=== PATIENT | male | born 1995 | race Caucasian/White ===

== ENCOUNTER 2021-09-05 04:27 | Emergency (ER) | payer SELFPAY ==
[~2021-09-05] VITALS: Ht 177.8 cm; Wt 123.0 kg
[2021-09-05 04:56] LABS: BASO # 0.1 x10^3/uL (0.0-0.2); BASO % 1 % (0-3); EOS # 0.2 x10^3/uL (0.0-0.7); EOS % 3 % (0-3); HEMATOCRIT 45.7 % (39.0-53.0); HEMOGLOBIN 15.4 g/dL (13.0-17.5); LYMPH # 2.1 x10^3/uL (1.0-4.8); LYMPH % 22 % (24-48); MEAN CORPUSCULAR HEMOGLOBIN 29 pg (25-35); MEAN CORPUSCULAR HGB CONC 34 g/dL (31-37); MEAN CORPUSCULAR VOLUME 87 fL (79-100); MONO # 0.8 x10^3/uL (0.0-1.1); MONO % 9 % (0-9); NEUT # 6.4 x10^3/uL (1.8-7.7); NEUT % 66 % (31-73); PLATELET COUNT 275 x10^3/uL (140-400); RED BLOOD COUNT 5.26 x10^6/uL (4.30-5.70); RED CELL DISTRIBUTION WIDTH 13.1 % (11.5-14.5); WHITE BLOOD COUNT 9.6 x10^3/uL (4.0-11.0)
--- NOTE | 2021-09-05 05:06 | RAD ---
XR CHEST 1V Clinical History: Reason: chest pain / Spl. Instructions: / History: Technique: AP view of the chest was obtained at 09/05/2021 4:56 AM. Comparison: None. Findings: The cardiomediastinal silhouette is normal. The pulmonary vasculature is normal. The lungs and pleura l margins are clear. Impression: No evidence of an acute cardiopulmonary process. Electronically signed by: Jacoby Toussaint III, MD (09/05/2021 5:03 AM) [facility]
[2021-09-05 05:07] LABS: CALCIUM 8.5 mg/dL (8.5-10.1); CREATININE 1.2 mg/dL (0.7-1.3); GFR 74.4; POTASSIUM 3.7 mmol/L (3.5-5.1)
[2021-09-05 05:19] VITALS: BP 167/81
--- NOTE | 2021-09-05 05:19 | PHYS DOC ---
Past Medical History Additional Past Medical Histor: COVID 14 SEP 2021 Past Surgical History: No Surgical History Smoking Status: Never Smoker Alcohol Use: None General Adult EDM: Chief Complaint: CHEST PAIN HPI: HPI: Patient is a 26 year old male with history of untreated HTN who presents with chest pain. Pain started approximately 1.5 hours prior to arrival. Substernal. Sharp. Radiates to the left shoulder. Not pleuritic. Initially felt short of breath, but this spontaneously improved. He thinks he may have had Covid at the end of July. On 08/16 began having symptoms of myalgias, chills, nausea/vomiting, diarrhea. His girlfriend tested positive on 08/18 for Covid. He did not get tested until ~08/30 which he states was negative at that time. He had recovered to his usual state of health except for some lingering headaches. He states that he has anxiety and GERD and that this may be related to either of those, but he became so anxious that he needed to get checked out. No hemoptysis, cancer hx, lower extremity edema, smoking, recent surgery or immobilization. Has had untreated HTN for years, no DM, HLD to his knowledge. Review of Systems: Review of Systems: Constitutional: Denies fever or chills. [] Eyes: Denies change in visual acuity. [] HENT: Denies nasal congestion or sore throat. [] Respiratory: Denies cough or shortness of breath. [] Cardiovascular: Reports chest pain. GI: Denies abdominal pain, nausea, vomiting, bloody stools or diarrhea. [] : Denies dysuria. [] Musculoskeletal: Denies back pain or joint pain. [] Integument: Denies rash. [] Neurologic: Reports occasional headaches (none now). Denies focal weakness or sensory changes. [] Psychiatric: Denies depression or anxiety. [] Heart Score: C/O Chest Pain: Yes HEART Score for Chest Pain: HEART Score for Chest Pain Response (Comments) Value History Slighlty/Non-Suspicious 0 ECG Normal 0 Age < 45 0 Risk Factors 1 or 2 Risk Factors 1 Troponin < Normal Limit 0 Total 1 Risk Factors: Risk Factors: HTN, Obesity Risk Scores: Score 0 - 3: 2.5% MACE over next 6 weeks - Discharge Home Allergies: Allergies: Allergies Coded Allergies Type Severity Reaction Last Updated Verified No Known Drug Allergies 2/4/22 No Physical Exam: PE: Constitutional: Slightly anxious appearing, no distress, non-toxic HENT: Normocephalic, atraumatic [] Neck: Normal range of motion, no tenderness, supple, no stridor. [] Cardiovascular:tachy, regular, no murmur [] Lungs & Thorax: Bilateral breath sounds clear to auscultation [] Abdomen: Bowel sounds normal, soft, no tenderness, no masses, no pulsatile masses. [] Extremities: No tenderness, no cyanosis, no clubbing, ROM intact, no edema. [] Neurologic: Alert and oriented X 3, normal motor function, normal sensory function, no focal deficits noted. [] Psychologic: Anxious stated mood, congruent affect. Current Patient Data: Labs: Laboratory Tests Test 09/05/21 04:38 White Blood Count 9.6 x10^3/uL (4.0-11.0) Red Blood Count 5.26 x10^6/uL (4.30-5.70) Hemoglobin 15.4 g/dL (13.0-17.5) Hematocrit 45.7 % (39.0-53.0) Mean Corpuscular Volume 87 fL (79-100) Mean Corpuscular Hemoglobin 29 pg (25-35) Mean Corpuscular Hemoglobin Concent 34 g/dL (31-37) Red Cell Distribution Width 13.1 % (11.5-14.5) Platelet Count 275 x10^3/uL (140-400) Neutrophils (%) (Auto) 66 % (31-73) Lymphocytes (%) (Auto) 22 % (24-48) L Monocytes (%) (Auto) 9 % (0-9) Eosinophils (%) (Auto) 3 % (0-3) Basophils (%) (Auto) 1 % (0-3) Neutrophils # (Auto) 6.4 x10^3/uL (1.8-7.7) Lymphocytes # (Auto) 2.1 x10^3/uL (1.0-4.8) Monocytes # (Auto) 0.8 x10^3/uL (0.0-1.1) Eosinophils # (Auto) 0.2 x10^3/uL (0.0-0.7) Basophils # (Auto) 0.1 x10^3/uL (0.0-0.2) Laboratory Tests 09/05/21 04:38 Vital Signs: Vital Signs Date Time Temp Pulse Resp B/P (MAP) Pulse Ox O2 Delivery O2 Flow Rate FiO2 09/05/21 05:00 99 20 177/86 (116) 98 Room Air 09/05/21 04:35 98.6 98.6 EKG: EKG: Sinus rhythm. Rate 103. Normal axis. Normal NV, QRS, QTc intervals. No ST elevation or depression. No pathologic Q waves. [] Radiology/Procedures: Radiology/Procedures: [] Impression: [facility] [address] [place] [address] IMAGING REPORT Signed PATIENT: BRAD QUINN ACCOUNT: [id number] : 1995 LOCATION: ER AGE: 26 SEX: M EXAM STATUS: REG ER ORD. PHYSICIAN: MARY ELLEN PLATA MD REASON: chest pain PROCEDURE: CHEST AP ONLY XR CHEST 1V Clinical History: Reason: chest pain / Spl. Instructions: / History: Technique: AP view of the chest was obtained at 09/05/2021 4:56 AM. Comparison: None. Findings: The cardiomediastinal silhouette is normal. The pulmonary vasculature is normal. The lungs and pleural margins are clear. Impression: No evidence of an acute cardiopulmonary process. Electronically signed by: Jacy Toussaint III, MD (09/05/2021 5:03 AM) [facility] DICTATED and SIGNED BY: JACY TOUSSAINT III, MD DATE: 09/05/21 [id number] 0 Course & Med Decision Making: Course & Med Decision Making Pertinent Labs and Imaging studies reviewed. (See chart for details) Patient is 26-year-old male with history of untreated hypertension, and potentially recent Covid infection who presents with chest pain. On arrival is afebrile, tachycardic to low 100s, hypertensive, and satting well on room air. No acute distress on examination. Lungs clear. Chest x-ray normal. Not pneumonia or spontaneous ptx. EKG with sinus tachycardia, rate 103, otherwise normal. No ischemic changes. HEART score =1 for RF (obesity, HTN). Trop negative. At his age is exceedingly low risk for ACS. Considered PE given tachycardia and sharp CP, d-dimer negative. No further work up for PE in the ED. Patient HR now 90s. BP 167/81. Given stated hx of chronic HTN will give Rx for chlorthalidone and provide a list of primary care doctors to follow up with. Return precautions discussed. Telly Disclaimer: Telly Disclaimer: This electronic medical record was generated, in whole or in part, using a voice recognition dictation system. Departure Departure Impression: Primary Impression: Chest pain Disposition: HOME / SELF CARE / HOMELESS Condition: STABLE Referrals: NO PCP (PCP) Additional Instructions: Your work-up today was very reassuring against dangerous causes of chest pain. There is no sign of a heart attack. There is no sign of a blood clot in your lungs. There is no sign of pneumonia or other lung problems on your chest x- ray. Your blood pressure was significantly high. I have sent a prescription for a blood pressure medication called chlorthalidone to your pharmacy. Please pick this up and take it as prescribed. Please follow-up with a primary care doctor. Since you do not have a PCP, please call the number for the [facility] at [phone]. If you develop severe worsening of chest pain, worsening shortness of breath, or other new/concerning symptoms please return to the emergency department for reevaluation. Scripts Chlorthalidone (CHLORTHALIDONE ) 25 Mg Tablet 25 MG PO DAILY for DIURETIC for 30 Days, #30 TAB 0 Refills Prov: MARY ELLEN PLATA MD 09/05/21 MARY ELLEN PLATA MD Sep 05, 2021 05:19
[2021-09-05] MEDS ORDERED: CHLO25TA10 PO (05:30)
--- NOTE | 2021-09-05 07:26 | EKG ---
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
== END 2021-09-05 05:40 | disposition home or self-care (01) ==
LOC: ER 04:27
DX: R07.89 Other chest pain (principal); R06.02 Shortness of breath; I10 Essential (primary) hypertension
CPT/HCPCS: 36415; 71045; 80048; 84484; 85025; 85379; 93005; 99285-25

== ENCOUNTER 2021-09-27 14:12 | Emergency (ER) | payer SELFPAY ==
[~2021-09-27 14:12] MED LIST: CHLO25TA10 PO
== END 2021-09-27 15:06 | disposition left against medical advice (07) ==
LOC: ER 14:12
DX: J02.9 Acute pharyngitis, unspecified (principal); M54.2 Cervicalgia; Z53.21 Procedure and treatment not carried out due to patient leaving prior to being seen by health care provider

== ENCOUNTER 2021-10-17 22:02 | Emergency (ER) | payer SELFPAY ==
[~2021-10-17] VITALS: Ht 177.8 cm; Wt 113.0 kg
[2021-10-17 22:46] VITALS: BP 191/85
--- NOTE | 2021-10-17 22:55 | PHYS DOC ---
Past Medical History Additional Past Medical Histor: COVID 14 SEP 2021 Past Surgical History: No Surgical History Smoking Status: Never Smoker Alcohol Use: None General Adult EDM: Chief Complaint: NAUSEA/VOMITING/DIARRHEA HPI: HPI: Patient is a 26 year old male who presents with complaint of intractable nausea and vomiting. The patient states that he has been having difficulty with nausea and vomiting for several months. He states that in that time he has lost close to 40 pounds due to difficulty with oral intake. He states that he saw his primary care provider 2 days ago and subsequently was referred to the emergency department for further evaluation. He states that while at the emergency department at [facility] in [place], [place], he underwent blood work and CT imaging. He was diagnosed with GERD and hiatal hernia. The patient states however that despite ongoing treatment at home, he has not been able to tolerate oral intake and has had multiple episodes of nausea and vomiting. The patient states he feels very fatigued, nauseous, and states that he is concerned that he is very dehydrated. Despite trying to maintain oral hydration, he states that he immediately vomits anything that he tries to eat or drink. Patient thus came to the emergency department for further evaluation. The patient states that he is supposed to see a telemarketing manager next month. He is currently taking oral omeprazole and tried increasing his dose from 20 mg daily to 40 mg today, however he has not been able to tolerate any oral medication because of his vomiting. Review of Systems: Review of Systems: Constitutional: Fatigue, denies fever or chills. [] Eyes: Denies change in visual acuity. [] HENT: Denies nasal congestion or sore throat. [] Respiratory: Denies cough or shortness of breath. [] Cardiovascular: Denies chest pain or edema. [] GI: Nausea, vomiting, denies abdominal pain, bloody stools or diarrhea. [] : Denies dysuria. [] Musculoskeletal: Denies back pain or joint pain. [] Integument: Denies rash. [] Neurologic: Denies headache, focal weakness or sensory changes. [] Endocrine: Denies polyuria or polydipsia. [] Heart Score: C/O Chest Pain: No Risk Factors: Risk Factors: DM, Current or recent (<one month) smoker, HTN, HLP, family history of CAD, obesity. Risk Scores: Score 0 - 3: 2.5% MACE over next 6 weeks - Discharge Home Score 4 - 6: 20.3% MACE over next 6 weeks - Admit for Clinical Observation Score 7 - 10: 72.7% MACE over next 6 weeks - Early Invasive Strategies Allergies: Allergies: Allergies Coded Allergies Type Severity Reaction Last Updated Verified No Known Drug Allergies 08/30/21 No Physical Exam: PE: Constitutional: Alert, afebrile, ill-appearing. [] HENT: Normocephalic, atraumatic, bilateral external ears normal, oropharynx dry, no oral exudates, nose normal. [] Eyes: PERRLA, EOMI, conjunctiva normal, no discharge. [] Neck: Normal range of motion, no tenderness, supple, no stridor. [] Cardiovascular:Heart rate regular rhythm, no murmur [] Lungs & Thorax: Bilateral breath sounds clear to auscultation [] Abdomen: Bowel sounds normal, soft, no tenderness, no masses, no pulsatile masses. [] Skin: Warm, dry, no erythema, no rash. [] Back: No tenderness, no CVA tenderness. [] Extremities: No tenderness, no cyanosis, no clubbing, ROM intact, no edema. [] Neurologic: Alert and oriented X 3, normal motor function, normal sensory function, no focal deficits noted. [] Current Patient Data: Labs: Laboratory Tests Test 10/17/21 22:53 White Blood Count 5.9 x10^3/uL Red Blood Count 5.18 x10^6/uL Hemoglobin 15.0 g/dL Hematocrit 44.6 % Mean Corpuscular Volume 86 fL Mean Corpuscular Hemoglobin 29 pg Mean Corpuscular Hemoglobin Concent 34 g/dL Red Cell Distribution Width 13.4 % Platelet Count 149 x10^3/uL Neutrophils (%) (Auto) 60 % Lymphocytes (%) (Auto) 27 % Monocytes (%) (Auto) 10 % Eosinophils (%) (Auto) 2 % Basophils (%) (Auto) 1 % Neutrophils # (Auto) 3.5 x10^3/uL Lymphocytes # (Auto) 1.6 x10^3/uL Monocytes # (Auto) 0.6 x10^3/uL Eosinophils # (Auto) 0.1 x10^3/uL Basophils # (Auto) 0.1 x10^3/uL Sodium Level 142 mmol/L Potassium Level 3.7 mmol/L Chloride Level 106 mmol/L Carbon Dioxide Level 21 mmol/L Anion Gap 15 Blood Urea Nitrogen 8 mg/dL Creatinine 1.0 mg/dL Estimated GFR (Cockcroft-Gault) 91.8 BUN/Creatinine Ratio 8 Glucose Level 97 mg/dL Calcium Level 9.0 mg/dL Total Bilirubin 1.1 mg/dL Aspartate Amino Transf (AST/SGOT) 49 U/L Alanine Aminotransferase (ALT/SGPT) 76 U/L Alkaline Phosphatase 62 U/L Total Protein 7.4 g/dL Albumin 3.9 g/dL Albumin/Globulin Ratio 1.1 Lipase 356 U/L Current Medications Medications (Trade) Dose Ordered Sig/Darleen Route PRN Reason Start Time Stop Time Status Last Admin Dose Admin Sodium Chloride 1,000 ml @ 1,000 mls/hr Q1H IV 10/17/21 23:00 10/17/21 23:59 10/17/21 22:54 Prochlorperazine Edisylate (Compazine) 10 mg 1X ONCE IVP 10/17/21 23:00 10/17/21 23:01 DC 10/17/21 23:00 Famotidine (Pepcid Vial) 20 mg 1X ONCE IVP 10/17/21 23:00 10/17/21 23:01 DC 10/17/21 23:00 Diphenhydramine HCl (Benadryl) 12.5 mg 1X ONCE IVP 10/17/21 23:00 10/17/21 23:01 DC 10/17/21 23:00 Multi-Ingredient Mouthwash/Gargle (Gi Cocktail) 20 ml 1X ONCE SWSW 10/17/21 23:45 10/17/21 23:39 DC Al Hydroxide/Mg Hydroxide (Mylanta Plus Xs) 30 ml 1X ONCE PO 10/17/21 23:45 10/17/21 23:46 DC Vital Signs: Vital Signs Date Time Temp Pulse Resp B/P (MAP) Pulse Ox O2 Delivery O2 Flow Rate FiO2 10/17/21 22:19 98.0 83 18 157/94 (115) 97 Room Air 98.0 EKG: EKG: Not performed[] Radiology/Procedures: Radiology/Procedures: [facility] [address] [place] [address] IMAGING REPORT Signed PATIENT: BRAD QUINN ACCOUNT: [id number] : 1995 LOCATION: ER AGE: 26 SEX: M EXAM STATUS: REG ER ORD. PHYSICIAN: VIPUL LAL MD REASON: intractable nausea and vomiting PROCEDURE: ACUTE ABDOMEN SERIES XR ABDOMEN COMP ACUTE History: Intractable nausea and vomiting Comparison: None. Technique: Frontal chest with upright and supine radiographs of the abdomen and pelvis. Findings: Chest: The lungs are mildly hypoinflated. No focal airspace consolidation, pleural effusion or pneumothorax. Bowel gas pattern: Nonobstructive bowel gas pattern. No abnormally dilated bowel loops or differential air-fluid levels. Normal colonic gas without significant colonic stool burden. Free air: None. Abnormal calcifications: None. Bones: No acute findings. Other: None. Impression: 1. No acute findings in the abdomen and pelvis. 2. Clear lungs. Electronically signed by: Oscar Sharif MD (10/17/2021 11:44 PM) [facility] DICTATED and SIGNED BY: OSCAR SHARIF MD DATE: 10/17/212341 [] Course & Med Decision Making: Course & Med Decision Making Pertinent Labs and Imaging studies reviewed. (See chart for details) Patient was started on IV fluids, Pepcid, Compazine, and Benadryl. Patient's blood work was reviewed. Patient had noted mild nonspecific elevation of bilirubin, AST, and ALT. After administration of treatment the patient states that his symptoms have improved. Acute abdominal series shows no acute abnormalities. I recommended proceeding with oral treatment with Maalox to as sess PO status. The patient voiced apprehension of this as he was concerned about the possibility of included lidocaine. I assured the patient that we would treat with Maalox only and that this would be important to assess his PO status before making a decision on disposition. Shortly after this conversation, the patient stated he did not want any further treatments in the emergency department and wanted to leave. Patient was made aware of potential risk of leaving before full evaluation could be performed in the emergency department including worsening condition, illness, and possible . Patient was of sound mind and able to make his own medical decisions. The patient has decided to leave the emergency department AGAINST MEDICAL ADVICE. Advised to follow-up closely with primary care provider in the next 1 to 2 days for reevaluation and to return to the emergency department for any worsening symptoms. [] Dragon Disclaimer: Dragon Disclaimer: This electronic medical record was generated, in whole or in part, using a voice recognition dictation system. Departure Departure Impression: Primary Impression: Nausea and vomiting Qualified Codes: R11.2 - Nausea with vomiting, unspecified Additional Impression: Dehydration Disposition: LEFT AGAINST MEDICAL ADVICE Condition: STABLE Referrals: VISHAL BARAHONA OTR (PCP) VIPUL LAL MD Oct 17, 2021 22:55
[2021-10-17] MEDS ORDERED: diphenhydrAMINE 50 MG/ML VIAL IVP ONE (23:00)
[2021-10-17] MEDS ORDERED: IV NORMAL SALINE 1000ML BAG 1,000 ML IV SCH (23:00)
[2021-10-17] MEDS ORDERED: PROCHLORPERAZINE 10 MG/2 ML VIAL. IVP ONE (23:00)
[2021-10-17] MEDS ORDERED: FAMOTIDINE 20 MG/2 ML VIAL IVP ONE (23:00)
[2021-10-17 23:02] LABS: BASO # 0.1 x10^3/uL (0.0-0.2); BASO % 1 % (0-3); EOS # 0.1 x10^3/uL (0.0-0.7); EOS % 2 % (0-3); HEMATOCRIT 44.6 % (39.0-53.0); LYMPH # 1.6 x10^3/uL (1.0-4.8); LYMPH % 27 % (24-48); MEAN CORPUSCULAR HEMOGLOBIN 29 pg (25-35); MEAN CORPUSCULAR HGB CONC 34 g/dL (31-37); MEAN CORPUSCULAR VOLUME 86 fL (79-100); MONO # 0.6 x10^3/uL (0.0-1.1); MONO % 10 % (0-9); NEUT # 3.5 x10^3/uL (1.8-7.7); NEUT % 60 % (31-73); PLATELET COUNT 149 x10^3/uL (140-400); RED BLOOD COUNT 5.18 x10^6/uL (4.30-5.70); RED CELL DISTRIBUTION WIDTH 13.4 % (11.5-14.5); WHITE BLOOD COUNT 5.9 x10^3/uL (4.0-11.0)
[2021-10-17 23:08] LABS: GFR 91.8; POTASSIUM 3.7 mmol/L (3.5-5.1)
[2021-10-17 23:14] LABS: ALBUMIN 3.9 g/dL (3.4-5.0); ALBUMIN/GLOBULIN RATIO 1.1 (1.0-1.7); TOTAL BILIRUBIN 1.1 mg/dL (0.2-1.0); TOTAL PROTEIN 7.4 g/dL (6.4-8.2)
[2021-10-17] MEDS ORDERED: LIDO:MAALOX 1:1 20 ML SINGLE DOSE. SWSW ONE (23:45)
[2021-10-17] MEDS ORDERED: MAG HYDROX/ALUMINUM HYD/SIMETH 30 ML ORAL.SUSP PO ONE (23:45)
--- NOTE | 2021-10-17 23:46 | RAD ---
XR ABDOMEN COMP ACUTE History: Intractable nausea and vomiting Comparison: None. Technique: Frontal chest with upright and supine radiographs of the abdomen and pelvis. Findings: Chest: The lungs are mildly hypoinflated. No focal airspace consolidation, pleural effusion or pneumo thorax. Bowel gas pattern: Nonobstructive bowel gas pattern. No abnormally dilated bowel loops or differentia l air-fluid levels. Normal colonic gas without significant colonic stool burden. Free air: None. Abnormal calcifications: None. Bones: No acute findings. Other: None. Impression: 1. No acute findings in the abdomen and pelvis. 2. Clear lungs. Electronically signed by: Oscar Romero MD (10/17/2021 11:44 PM) [facility]
== END 2021-10-17 22:55 | disposition left against medical advice (07) ==
LOC: ER 22:02
DX: E86.0 Dehydration (principal); R11.2 Nausea with vomiting, unspecified; R53.83 Other fatigue; K21.9 Gastro-esophageal reflux disease without esophagitis
CPT/HCPCS: 36415; 74022; 80053; 83690; 85025; 96361; 96374; 96375; 99285; J0780; J1200; J3490; J7030